=== PATIENT | female | born 1965 | race Caucasian/White ===

== ENCOUNTER 2017-12-18 22:02 | Emergency (ER) | payer SELFPAY | END 2017-12-18 22:27 | disposition home or self-care (01) | LOC: ER 22:02 | DX: M79.671 Pain in right foot (principal); M79.672 Pain in left foot; M79.89 Other specified soft tissue disorders; J45.909 Unspecified asthma, uncomplicated; F32.9 Major depressive disorder, single episode, unspecified; E78.00 Pure hypercholesterolemia, unspecified; I10 Essential (primary) hypertension; G47.33 Obstructive sleep apnea (adult) (pediatric); Z90.49 Acquired absence of other specified parts of digestive tract; Z98.890 Other specified postprocedural states; Z88.6 Allergy status to analgesic agent; Z88.5 Allergy status to narcotic agent; Z88.8 Allergy status to other drugs, medicaments and biological substances | CPT/HCPCS: 99284 ==

== ENCOUNTER 2018-06-13 21:21 | Emergency (ER) | payer SELFPAY ==
[~2018-06-13] VITALS: Ht 165.1 cm; Wt 113.4 kg
[~2018-06-13 21:21] MED LIST: ALBU2.5V8 IH; CITA20TA6 PO; CRESTOR5 MG PO; ERGO500027 PO; GABA-585 PO; LORA10TA3 PO; MOME13HF2 IH; MOME17SP NS; MONT10TA9 PO; OLME20TA17 PO; OMEG1CAP38 PO
[2018-06-13 21:48] LABS: BILIRUBIN,URINE NEGATIVE (NEG); CLARITY,URINE CLEAR; COLOR,URINE YELLOW; NITRITE,URINE NEGATIVE (NEG); PROTEIN,URINE NEGATIVE (NEG-TRACE)
[2018-06-13 21:52] LABS: U PREG PATIENT NEGATIVE (NEG)
[2018-06-13 21:54] LABS: BACTERIA,URINE FEW /HPF (0-FEW); RBC,URINE RARE /HPF (0-2); SQUAMOUS EPITHELIAL CELL,UR FEW /LPF
--- NOTE | 2018-06-13 22:00 | PHYS DOC ---
Past Medical History Past Medical History: Asthma, Depression, High Cholesterol, Hypertension, Other Additional Past Medical Histor: ZAIRA, murmur Past Surgical History: Cholecystectomy, Alcohol Use: None Drug Use: None Adult General Chief Complaint Chief Complaint: ABDOMINAL PAIN HPI HPI Patient is a 52 year old female who presents with lower abdominal pain. This has been present for the past 4 days. Worsening over time. Patient had nausea and vomiting on day 1 and 2 of the illness. She also notes some softer than usual stool during the same time. She denies any blood in the stool or emesis. Nothing seems to make the discomfort better or worse. There has been no trauma. Patient has had a cholecystectomy as well as . Patient denies being . Denies any dysuria. Denies any fever.[] Review of Systems Review of Systems Constitutional: Denies fever or chills [] Eyes: Denies change in visual acuity, redness, or eye pain [] HENT: Denies nasal congestion or sore throat [] Respiratory: Denies cough or shortness of breath [] Cardiovascular: No chest pain or palpitations[] GI: See history of present illness[] : Denies dysuria or hematuria [] Musculoskeletal: Denies back pain or joint pain [] Integument: Denies rash or skin lesions [] Neurologic: Denies headache, focal weakness or sensory changes [] Endocrine: Denies polyuria or polydipsia [] All other systems were reviewed and found to be within normal limits, except as documented in this note. Current Medications Current Medications Current Medications Medications (Trade) Dose Ordered Sig/Gurmeet Start Time Stop Time Status Last Admin Dose Admin Hyoscyamine (Anaspaz) 0.125 mg ONCE ONCE 06/13/18 22:30 06/13/18 22:31 DC 06/13/18 22:31 0.125 MG Info (CONTRAST GIVEN -- Rx MONITORING) 1 each PRN DAILY PRN 06/13/18 23:00 06/15/18 22:59 Iohexol (Omnipaque 300 Mg/ml) 75 ml 1X ONCE 06/13/18 23:00 06/13/18 23:01 DC 06/13/18 22:56 75 ML Ondansetron HCl (Zofran) 4 mg 1X ONCE 06/13/18 22:30 06/13/18 22:31 DC 06/13/18 22:26 4 MG Sodium Chloride 1,000 ml @ 1,000 mls/hr Q1H 06/13/18 22:30 06/13/18 23:29 DC 06/13/18 22:26 1,000 MLS/HR Allergies Allergies Allergies Coded Allergies Type Severity Reaction Last Updated Verified aspirin Allergy Intermediate 08/24/17 Yes methocarbamol Allergy Intermediate Swelling 08/24/17 Yes codeine Allergy Mild 08/24/17 Yes Physical Exam Physical Exam Constitutional: Well developed, well nourished, no acute distress, non-toxic appearance. [] HENT: Normocephalic, atraumatic, bilateral external ears normal, oropharynx moist, no oral exudates, nose normal. [] Eyes: PERRLA, EOMI, conjunctiva normal, no discharge. [] Neck: Normal range of motion, no tenderness, supple, no stridor. [] Cardiovascular:Heart rate regular rhythm, no murmur [] Lungs & Thorax: Bilateral breath sounds clear to auscultation [] Abdomen: Bowel sounds normal, soft, obese, tenderness in the left more than the right lower abdomen, no rebound, no guarding, no rigidity, no masses, no pulsatile masses. [] Skin: Warm, dry, no erythema, no rash. [] Back: No tenderness, no CVA tenderness. [] Extremities: No tenderness, no cyanosis, no clubbing, ROM intact, no edema. [] Neurologic: Alert and oriented X 3, normal motor function, normal sensory function, no focal deficits noted. [] Psychologic: Affect normal, judgement normal, mood normal. [] Current Patient Data Vital Signs Vital Signs Date Time Temp Pulse Resp B/P (MAP) Pulse Ox O2 Delivery O2 Flow Rate FiO2 06/13/18 21:30 98.7 67 27 166/79 (108) 98 BiPAP/CPAP 98.7 Lab Values Laboratory Tests Test 06/13/18 21:25 06/13/18 22:16 Urine Collection Type Unknown Urine Color Yellow Urine Clarity Clear Urine pH 8.0 Urine Specific Glidden 1.015 Urine Protein Negative mg/dL (NEG-TRACE) Urine Glucose (UA) Negative mg/dL (NEG) Urine Ketones (Stick) Negative mg/dL (NEG) Urine Blood Negative (NEG) Urine Nitrite Negative (NEG) Urine Bilirubin Negative (NEG) Urine Urobilinogen Dipstick 1.0 mg/dL (0.2 mg/dL) Urine Leukocyte Esterase Trace (NEG) Urine RBC Rare /HPF (0-2) Urine WBC 1-4 /HPF (0-4) Urine Squamous Epithelial Cells Few /LPF Urine Bacteria Few /HPF (0-FEW) Urine Test Negative (NEG) White Blood Count 6.9 x10^3/uL (4.0-11.0) Red Blood Count 4.53 x10^6/uL (3.50-5.40) Hemoglobin 13.4 g/dL (12.0-15.5) Hematocrit 40.4 % (36.0-47.0) Mean Corpuscular Volume 89 fL (79-100) Mean Corpuscular Hemoglobin 30 pg (25-35) Mean Corpuscular Hemoglobin Concent 33 g/dL (31-37) Red Cell Distribution Width 13.3 % (11.5-14.5) Platelet Count 246 x10^3/uL (140-400) Neutrophils (%) (Auto) 73 % (31-73) Lymphocytes (%) (Auto) 18 % (24-48) L Monocytes (%) (Auto) 8 % (0-9) Eosinophils (%) (Auto) 1 % (0-3) Basophils (%) (Auto) 1 % (0-3) Neutrophils # (Auto) 5.0 x10^3uL (1.8-7.7) Lymphocytes # (Auto) 1.2 x10^3/uL (1.0-4.8) Monocytes # (Auto) 0.5 x10^3/uL (0.0-1.1) Eosinophils # (Auto) 0.1 x10^3/uL (0.0-0.7) Basophils # (Auto) 0.1 x10^3/uL (0.0-0.2) Prothrombin Time 12.2 SEC (11.7-14.0) Prothrombin Time INR 0.9 (0.8-1.1) Sodium Level 143 mmol/L (136-145) Potassium Level 3.8 mmol/L (3.5-5.1) Chloride Level 104 mmol/L (98-107) Carbon Dioxide Level 31 mmol/L (21-32) Anion Gap 8 (6-14) Blood Urea Nitrogen 8 mg/dL (7-20) Creatinine 0.7 mg/dL (0.6-1.0) Estimated GFR (Cockcroft-Gault) 88.6 BUN/Creatinine Ratio 11 (6-20) Glucose Level 131 mg/dL (70-99) H Calcium Level 9.2 mg/dL (8.5-10.1) Total Bilirubin 0.3 mg/dL (0.2-1.0) Aspartate Amino Transferase (AST) 26 U/L (15-37) Alanine Aminotransferase (ALT) 74 U/L (14-59) H Alkaline Phosphatase 123 U/L (46-116) H Total Protein 7.0 g/dL (6.4-8.2) Albumin 3.0 g/dL (3.4-5.0) L Albumin/Globulin Ratio 0.8 (1.0-1.7) L Lipase 94 U/L (73-393) Laboratory Tests 06/13/18 22:16 Laboratory Tests 06/13/18 22:16 EKG EKG [] Radiology/Procedures Radiology/Procedures CT ABDOMEN/PELVIS WITH CONTRAST. HISTORY: Lower abdominal pain. TECHNIQUE: Computed tomography of the abdomen and pelvis was performed after the intravenous administration of 75 mL Omnipaque 300. COMPARISON: 08/24/2017. FINDINGS: Lung windows through the visualized portions of the bases reveal a calcified granuloma in the left base. Bone windows reveal no suspicious lesions. The gallbladder is surgically absent. The spleen is mildly enlarged at 14.4 cm. The liver, pancreas, adrenal glands and kidneys are unremarkable. A small bowel diverticulum in the left upper quadrant arises from the jejunum and appears mildly inflamed. It measures 3.2 cm as seen on axial image 40. There is no free perforation. A duodenal diverticulum from along the second portion measures 2.6 cm and is likely an incidental finding of no clinical significance. A right ovarian cyst measures 3.8 x 3.9 cm. On the prior study it was similar at 4.0 x 3.4 cm. There is no clear solid component by CT. The right ovary is relatively superiorly placed in the false pelvis. The left ovary is unremarkable by CT. The appendix is not inflamed. There is no small bowel obstruction. IMPRESSION: 1. A jejunal diverticulum in the left upper quadrant appears mildly inflamed consistent with small bowel diverticulitis. There is no associated fluid collection or free perforation. 2. 3.9 cm right ovarian cyst, not clearly changed since 08/24/2017. Nonemergent sonographic follow-up is suggested. 3. Mild splenomegaly. [] Course & Med Decision Making Course & Med Decision Making Pertinent Labs and Imaging studies reviewed. (See chart for details) Medical decision making and ED course: Patient appears to have diverticulitis, no evidence of an obstruction or perforation. No appendicitis. No urinary tract infection. Patient is being given first dose of antibiotics in the emergency department and being discharged in improved condition after discussion of labs and findings with patient[] Dragon Disclaimer Dragon Disclaimer This electronic medical record was generated, in whole or in part, using a voice recognition dictation system. Departure Departure Impression: Primary Impression: Diverticulitis Disposition: 01 HOME, SELF-CARE Condition: IMPROVED Referrals: TIKA FAITH DO (PCP) Follow-up in 2 days Patient Instructions: Diverticulitis, [id number] Additional Instructions: Follow-up with your regular doctor. Drink plenty of fluids. Avoid nuts and seeds in your diet. Return to the ER if worsening pain or any other concerns. Scripts Metronidazole (FLAGYL) 500 Mg Tablet 500 MG PO QID, #40 TAB Prov: MARY ANN KEITA DO 06/14/18 Sulfamethoxazole/Trimethoprim (BACTRIM DS TABLET) 1 Each Tablet 1 TAB PO BID, #14 TAB Prov: MARY ANN KEITA DO 06/14/18 Meloxicam (MELOXICAM) 7.5 Mg Tablet 7.5 MG PO DAILY, #20 TAB Prov: MARY ANN KEITA DO 06/14/18 Hyoscyamine Sulfate (LEVSIN) 0.125 Mg Tablet 0.125 MG PO QID, #30 TAB Prov: MARY ANN KEITA DO 06/14/18 MARY ANN KEITA DO Jun 13, 2018 22:00
[2018-06-13] MEDS ORDERED: IV NORMAL SALINE 1000ML BAG 1,000 ML IV SCH (22:30)
[2018-06-13] MEDS ORDERED: ONDANSETRON PF 4 MG/2 ML VIAL. IV ONE (22:30)
[2018-06-13] MEDS ORDERED: HYOSCYAMINE 0.125 MG TAB.RAPDIS PO ONE (22:30)
[2018-06-13 22:33] LABS: BASO # 0.1 x10^3/uL (0.0-0.2); BASO % 1 % (0-3); EOS # 0.1 x10^3/uL (0.0-0.7); EOS % 1 % (0-3); HEMATOCRIT 40.4 % (36.0-47.0); HEMOGLOBIN 13.4 g/dL (12.0-15.5); LYMPH # 1.2 x10^3/uL (1.0-4.8); LYMPH % 18 % (24-48); MEAN CORPUSCULAR HEMOGLOBIN 30 pg (25-35); MEAN CORPUSCULAR HGB CONC 33 g/dL (31-37); MEAN CORPUSCULAR VOLUME 89 fL (79-100); MONO # 0.5 x10^3/uL (0.0-1.1); MONO % 8 % (0-9); NEUT % 73 % (31-73); PLATELET COUNT 246 x10^3/uL (140-400); RED BLOOD COUNT 4.53 x10^6/uL (3.50-5.40); RED CELL DISTRIBUTION WIDTH 13.3 % (11.5-14.5); WHITE BLOOD COUNT 6.9 x10^3/uL (4.0-11.0)
[2018-06-13 22:41] LABS: CALCIUM 9.2 mg/dL (8.5-10.1); CREATININE 0.7 mg/dL (0.6-1.0); GFR 88.6; POTASSIUM 3.8 mmol/L (3.5-5.1)
[2018-06-13 22:42] LABS: PROTHROMBIN TIME PATIENT 12.2 SEC (11.7-14.0)
[2018-06-13 22:45] VITALS: BP 210/79
[2018-06-13 22:47] LABS: ALBUMIN/GLOBULIN RATIO 0.8 (1.0-1.7); TOTAL BILIRUBIN 0.3 mg/dL (0.2-1.0)
[2018-06-13] MEDS ORDERED: IOHEXOL 300 MG/ML 100ML VIAL. IV ONE (23:00)
[2018-06-13] MEDS ORDERED: CONTRAST GIVEN. MC PRN (23:00)
--- NOTE | 2018-06-13 23:32 | RAD ---
EXAM: CT ABDOMEN/PELVIS WITH CONTRAST. HISTORY: Lower abdominal pain. TECHNIQUE: Computed tomography of the abdomen and pelvis was performed after the intravenous administration of 75 mL Omnipaque 300. COMPARISON: 08/24/2017. FINDINGS: Lung windows through the visualized portions of the bases reveal a calcified granuloma in the left base. Bone windows reveal no suspicious lesions. The gallbladder is surgically absent. The spleen is mildly enlarged at 14.4 cm. The liver, pancreas, adrenal glands and kidneys are unremarkable. A small bowel diverticulum in the left upper quadrant arises from the jejunum and appears mildly inflamed. It measures 3.2 cm as seen on axial image 40. There is no free perforation. A duodenal diverticulum from along the second portion measures 2.6 cm and is likely an incidental finding of no clinical significance. A right ovarian cyst measures 3.8 x 3.9 cm. On the prior study it was similar at 4.0 x 3.4 cm. There is no clear solid component by CT. The right ovary is relatively superiorly placed in the false pelvis. The left ovary is unremarkable by CT. The appendix is not inflamed. There is no small bowel obstruction. IMPRESSION: 1. A jejunal diverticulum in the left upper quadrant appears mildly inflamed consistent with small bowel diverticulitis. There is no associated fluid collection or free perforation. 2. 3.9 cm right ovarian cyst, not clearly changed since 08/24/2017. Nonemergent sonographic follow-up is suggested. 3. Mild splenomegaly. *One or more of the following individualized dose reduction techniques were utilized for this examination: 1. Automated exposure control. 2. Adjustment of the mA and/or kV according to patient size. 3. Use of iterative reconstruction technique. Electronically signed by: David Sterling MD (06/13/2018 11:28 PM) [id number]
[2018-06-14] MEDS ORDERED: HYOS0.1264 PO (00:02)
[2018-06-14] MEDS ORDERED: METR500T PO (00:02)
[2018-06-14] MEDS ORDERED: MELO7.5T29 PO (00:02)
[2018-06-14] MEDS ORDERED: SULF1TAB24 PO (00:02)
[2018-06-14] MEDS ORDERED: SMZ/TMP 800/160MG TABLET. PO ONE (00:30)
[2018-06-14] MEDS ORDERED: metroNIDAZOLE 500 MG TABLET PO ONE (00:30)
== END 2018-06-14 00:40 | disposition home or self-care (01) ==
LOC: ER 21:21
DX: K57.10 Diverticulosis of small intestine without perforation or abscess without bleeding (principal); N83.201 Unspecified ovarian cyst, right side; R11.2 Nausea with vomiting, unspecified; R16.1 Splenomegaly, not elsewhere classified; J45.909 Unspecified asthma, uncomplicated; F32.9 Major depressive disorder, single episode, unspecified; E78.00 Pure hypercholesterolemia, unspecified; I10 Essential (primary) hypertension; G47.33 Obstructive sleep apnea (adult) (pediatric); Z90.49 Acquired absence of other specified parts of digestive tract; Z98.890 Other specified postprocedural states; Z88.6 Allergy status to analgesic agent; Z88.5 Allergy status to narcotic agent; Z88.8 Allergy status to other drugs, medicaments and biological substances
CPT/HCPCS: 36415; 74177; 80053; 81001; 81025; 83690; 85025; 85610; 96361; 96374; 99284; J2405; J7030; Q9967

== ENCOUNTER → 2019-01-12 | Outpatient (CLI) | payer OTHER ==
[~2019-01-12] MED LIST changes: +HYOS0.1264 PO; +MELO7.5T29 PO; +METR500T PO; +MONT10TA49 PO; -MONT10TA9 PO; +SULF1TAB24 PO
--- NOTE | 2019-01-12 16:01 | RAD ---
ANKLE RIGHT 2V 01/12/2019 12:00 AM INDICATION: Reduced range of motion COMPARISON: None available. TECHNIQUE: 2 views of the right ankle are provided. FINDINGS: Tibial plafond and talar dome are intact. Ankle mortise appears congruent with widening of the medial ankle mortise. No acute fracture is identified. There is subluxation of the tibia on the talus. 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 IMPRESSION: 1. No acute fracture is identified. There is subluxation of the tibia and the talus with widening of the medial ankle mortise. Findings may reflect ligamentous instability. 2. Partial talocalcaneal coalition. Electronically signed by: Diane Ortiz MD (01/12/2019 3:58 PM) [facility]
== END | disposition home or self-care (01) ==
LOC: RAD 10:25
PROVIDERS: ATTEND Emergency Medicine
DX: Z02.71 Encounter for disability determination (principal); S93.01XA Subluxation of right ankle joint, initial encounter; X58.XXXA Exposure to other specified factors, initial encounter; Y93.89 Activity, other specified; Y92.89 Other specified places as the place of occurrence of the external cause; Y99.8 Other external cause status
CPT/HCPCS: 73600

== ENCOUNTER 2020-01-22 18:19 | Emergency (ER) | payer MEDICAID, OTHER ==
[~2020-01-22] VITALS: Ht 165.1 cm; Wt 118.0 kg
[~2020-01-22 18:19] MED LIST changes: -ALBU2.5V8 IH; +PROVENTIL HFA6.7 GM IH
[2020-01-22 18:25] VITALS: BP 170/76
[2020-01-22] MEDS ORDERED: CLINDAMYCIN 900MG PREMIX 50 ML IV ONE (18:45)
--- NOTE | 2020-01-22 18:48 | PHYS DOC ---
Past Medical History Past Medical History: Asthma, Depression, Diabetes-Type II, High Cholesterol, Hypertension, Other Additional Past Medical Histor: ZAIRA, murmur Past Surgical History: Cholecystectomy, , Tubal ligation Smoking Status: Former Smoker Alcohol Use: None Drug Use: None General Adult EDM: Chief Complaint: ABSCESS HPI: HPI: Patient is a 54 year old female who presents with a chief complaint of facial swelling. Patient had right maxillary canine removed on January 12 and has had pain since then over the last 4 days had increased swelling and warmth. Patient has indurated area on her right side of her face. Patient denies any fevers chills or visual changes. Pain is worse with movement and palpation. Review of Systems: Review of Systems: Constitutional: Denies fever or chills. [] Eyes: Denies change in visual acuity. [] HENT: Complains of mouth pain and facial swelling Respiratory: Denies cough or shortness of breath. [] Cardiovascular: Denies chest pain or edema. [] GI: Denies abdominal pain, nausea, vomiting, bloody stools or diarrhea. [] : Denies dysuria. [] Musculoskeletal: Denies back pain or joint pain. [] Integument: Denies rash. [] Neurologic: Denies headache, focal weakness or sensory changes. [] Endocrine: Denies polyuria or polydipsia. [] Lymphatic: Denies swollen glands. [] Psychiatric: Denies depression or anxiety. [] Heart Score: Risk Factors: Risk Factors: DM, Current or recent (<one month) smoker, HTN, HLP, family history of CAD, obesity. Risk Scores: Score 0 - 3: 2.5% MACE over next 6 weeks - Discharge Home Score 4 - 6: 20.3% MACE over next 6 weeks - Admit for Clinical Observation Score 7 - 10: 72.7% MACE over next 6 weeks - Early Invasive Strategies Current Medications: Current Medications Medications (Trade) Dose Ordered Sig/Gurmeet Start Time Stop Time Status Last Admin Dose Admin Clindamycin Phosphate 50 ml @ 100 mls/hr 1X ONCE 01/22/20 18:45 01/22/20 19:14 UNV Allergies: Allergies: Allergies Coded Allergies Type Severity Reaction Last Updated Verified aspirin Allergy Intermediate 08/24/17 Yes methocarbamol Allergy Intermediate Swelling 08/24/17 Yes codeine Allergy Mild 4/15/18 Yes Physical Exam: PE: Constitutional: Well developed, well nourished, no acute distress, non-toxic appearance. [] HENT: Swelling to the right side of the face with some erythema and indurated area on the right maxilla intraorally there is some swelling on the right maxillary gingiva. The floor the mouth is soft no evidence of submandibular abscess Eyes: PERRLA, EOMI, conjunctiva normal, no discharge. [] No pain with extraocular movement Neck: Normal range of motion, no tenderness, supple, no stridor. [] Cardiovascular:Heart rate regular rhythm, peripheral pulses intact, cap refill brisk Lungs & Thorax: Bilateral breath sounds clear no respiratory distress Abdomen: Bowel sounds normal, soft, no tenderness, no masses, no pulsatile mas ses. [] Skin: Warm, dry, no erythema, no rash. [] Back: No tenderness, no CVA tenderness. [] Extremities: No tenderness, no cyanosis, no clubbing, ROM intact, no edema. [] Neurologic: Alert and oriented X 3, normal motor function, normal sensory function, no focal deficits noted. [] Psychologic: Affect normal, judgement normal, mood normal. [] Current Patient Data: Labs: Laboratory Tests Test 01/22/20 19:00 White Blood Count 5.5 x10^3/uL Red Blood Count 4.21 x10^6/uL Hemoglobin 12.5 g/dL Hematocrit 37.6 % Mean Corpuscular Volume 89 fL Mean Corpuscular Hemoglobin 30 pg Mean Corpuscular Hemoglobin Concent 33 g/dL Red Cell Distribution Width 13.7 % Platelet Count 227 x10^3/uL Neutrophils (%) (Auto) 74 % Lymphocytes (%) (Auto) 14 % Monocytes (%) (Auto) 10 % Eosinophils (%) (Auto) 2 % Basophils (%) (Auto) 1 % Neutrophils # (Auto) 4.1 x10^3/uL Lymphocytes # (Auto) 0.8 x10^3/uL Monocytes # (Auto) 0.5 x10^3/uL Eosinophils # (Auto) 0.1 x10^3/uL Basophils # (Auto) 0.1 x10^3/uL Sodium Level 141 mmol/L Potassium Level 3.9 mmol/L Chloride Level 103 mmol/L Carbon Dioxide Level 32 mmol/L Anion Gap 6 Blood Urea Nitrogen 12 mg/dL Creatinine 0.7 mg/dL Estimated GFR (Cockcroft-Gault) 87.9 BUN/Creatinine Ratio 17 Glucose Level 113 mg/dL Lactic Acid Level 1.5 mmol/L Calcium Level 9.8 mg/dL Total Bilirubin 0.3 mg/dL Aspartate Amino Transf (AST/SGOT) 53 U/L Alanine Aminotransferase (ALT/SGPT) 75 U/L Alkaline Phosphatase 96 U/L Total Protein 7.3 g/dL Albumin 3.3 g/dL Albumin/Globulin Ratio 0.8 Current Medications Medications (Trade) Dose Ordered Sig/Gurmeet Route PRN Reason Start Time Stop Time Status Last Admin Dose Admin Clindamycin Phosphate 50 ml @ 100 mls/hr 1X ONCE IV 01/22/20 18:45 01/22/20 19:14 DC 01/22/20 19:09 Iohexol (Omnipaque 300 Mg/ml) 70 ml 1X ONCE IV 01/22/20 19:30 01/22/20 19:31 DC 01/22/20 19:46 Info (CONTRAST GIVEN -- Rx MONITORING) 1 each PRN DAILY PRN MC SEE COMMENTS 01/22/20 19:30 01/24/20 19:29 Vital Signs: Vital Signs Date Time Temp Pulse Resp B/P (MAP) Pulse Ox O2 Delivery O2 Flow Rate FiO2 01/22/20 18:25 98.7 86 16 170/76 (107) 98 Room Air 98.7 EKG: EKG: [] Radiology/Procedures: Radiology/Procedures: [][facility] [address] [place] [address] IMAGING REPORT Signed PATIENT: BOB COBB LACCOUNT: [id number] : 1965 LOCATION: ER AGE: 54 SEX: F EXAM STATUS: REG ER ORD. PHYSICIAN: LEYDI GORE MD REASON: right facial abscess, OMNI 300, 70 ML IV PROCEDURE: CT MAXILLOFACIAL W/CONTRAST Exam: CT maxillofacial with contrast INDICATION: Right facial abscess TECHNIQUE: Sequential axial images through the maxillofacial obtained following the administration of 70 mL of Omni 300 IV contrast. Sagittal and coronal reformatted images were reconstructed from the axial data and reviewed. Comparisons: None FINDINGS: Visualized intracranial structures are unremarkable. Globes and orbital contents are normal. Adjacent to the right mandibular body there is a 2.0 cm peripherally enhancing fluid collection, with adjacent fat stranding in the subcutaneous fat. Patient is partially edentulous. No acute fractures seen. IMPRESSION: A 2 cm abscess in the right face soft tissues adjacent to the body of the mandible on the right with adjacent inflammatory changes. Exposure: One or more of the following in the visualized dose reduction techniques were utilized for this examination: 1. Automated exposure control 2. Adjustment of the MA and/or KV according to patient size 3. Use of iterative of reconstructive technique Electronically signed by: Alok Martínez MD (01/22/2020 8:04 PM) [id number] DICTATED and SIGNED BY: ALOK MARTÍNEZ MD DATE: 01/22/202003 Course & Med Decision Making: Course & Med Decision Making Pertinent Labs and Imaging studies reviewed. (See chart for details) [] 54-year-old female with a dental and facial abscess following dental extraction [address] shows a 2 cm right-sided facial abscess. Patient received IV clindamycin here. Patient will be transferred to [facility] for further evaluation and definitive treatment Dr. Ralf Dumont will accept the transfer. Dragon Disclaimer: Dragon Disclaimer: This electronic medical record was generated, in whole or in part, using a voice recognition dictation system. Departure Departure Impression: Primary Impression: Periapical abscess with facial involvement Disposition: 02 TRANSFER [facility] Referrals: TIKA FAITH DO (PCP) Justicifation of Admission Dx: Justifications for Admission: Justification of Admission Dx: N/A LEYDI GORE MD Jan 22, 2020 18:48
[2020-01-22 19:07] LABS: BASO # 0.1 x10^3/uL (0.0-0.2); BASO % 1 % (0-3); EOS # 0.1 x10^3/uL (0.0-0.7); EOS % 2 % (0-3); HEMATOCRIT 37.6 % (36.0-47.0); HEMOGLOBIN 12.5 g/dL (12.0-15.5); LYMPH # 0.8 x10^3/uL (1.0-4.8); LYMPH % 14 % (24-48); MEAN CORPUSCULAR HEMOGLOBIN 30 pg (25-35); MEAN CORPUSCULAR HGB CONC 33 g/dL (31-37); MEAN CORPUSCULAR VOLUME 89 fL (79-100); MONO # 0.5 x10^3/uL (0.0-1.1); MONO % 10 % (0-9); NEUT # 4.1 x10^3/uL (1.8-7.7); NEUT % 74 % (31-73); PLATELET COUNT 227 x10^3/uL (140-400); RED BLOOD COUNT 4.21 x10^6/uL (3.50-5.40); RED CELL DISTRIBUTION WIDTH 13.7 % (11.5-14.5); WHITE BLOOD COUNT 5.5 x10^3/uL (4.0-11.0)
[2020-01-22 19:14] LABS: CALCIUM 9.8 mg/dL (8.5-10.1); CREATININE 0.7 mg/dL (0.6-1.0); GFR 87.9; POTASSIUM 3.9 mmol/L (3.5-5.1)
[2020-01-22 19:19] LABS: ALBUMIN 3.3 g/dL (3.4-5.0); ALBUMIN/GLOBULIN RATIO 0.8 (1.0-1.7); TOTAL BILIRUBIN 0.3 mg/dL (0.2-1.0); TOTAL PROTEIN 7.3 g/dL (6.4-8.2)
[2020-01-22] MEDS ORDERED: IOHEXOL 300 MG/ML 100ML VIAL. IV ONE (19:30)
[2020-01-22] MEDS ORDERED: CONTRAST GIVEN. MC PRN (19:30)
--- NOTE | 2020-01-22 20:07 | RAD ---
Exam: CT maxillofacial with contrast INDICATION: Right facial abscess TECHNIQUE: Sequential axial images through the maxillofacial obtained following the administration of 70 mL of Omni 300 IV contrast. Sagittal and coronal reformatted images were reconstructed from the axial data and reviewed. Comparisons: None FINDINGS: Visualized intracranial structures are unremarkable. Globes and orbital contents are normal. Adjacent to the right mandibular body there is a 2.0 cm peripherally enhancing fluid collection, with adjacent fat stranding in the subcutaneous fat. Patient is partially edentulous. No acute fractures seen. IMPRESSION: A 2 cm abscess in the right face soft tissues adjacent to the body of the mandible on the right with adjacent inflammatory changes. Exposure: One or more of the following in the visualized dose reduction techniques were utilized for this examination: 1. Automated exposure control 2. Adjustment of the MA and/or KV according to patient size 3. Use of iterative of reconstructive technique Electronically signed by: Alok Kasper MD (01/22/2020 8:04 PM) [id number]
== END 2020-01-22 21:25 | disposition short-term general hospital (02) ==
LOC: ER 18:19
DX: K04.7 Periapical abscess without sinus (principal); L02.01 Cutaneous abscess of face; F32.9 Major depressive disorder, single episode, unspecified; F41.9 Anxiety disorder, unspecified; E11.9 Type 2 diabetes mellitus without complications; J45.909 Unspecified asthma, uncomplicated; E78.00 Pure hypercholesterolemia, unspecified; I10 Essential (primary) hypertension; Z87.891 Personal history of nicotine dependence; Z88.6 Allergy status to analgesic agent; Z88.8 Allergy status to other drugs, medicaments and biological substances
CPT/HCPCS: 36415; 70487; 80053; 83605; 85025; 96365; 99285; J3490; Q9967